=== PATIENT | female | born 1950 | race Caucasian/White ===

== ENCOUNTER 2020-12-17 09:39 | Day surgery (SDC) | payer MEDICARE ==
[~2020-12-17] VITALS: Ht 155 cm; Wt 63.0 kg
[~2020-12-17 09:39] MED LIST: ACETAMINOPHEN500 M1 PO; ALLERGY RELIEF10 M1 PO; ASPIRIN EC81 MG PO; ATORVASTATIN CA20 MG PO; FLUOXETINE HCL40 MG PO; LISINOPRIL20 MG PO; METOPROLOL SUCC50 MG PO; PERCOCET 5-3251 EACH PO; PROVENTIL HFA6.7 GM INH; VITAMIN D310 MC3 PO
[2020-12-18 05:52] LABS: BASOPHIL 0.1 % (0-2); EOSINOPHIL 0 % (0-7); HCT 25.3 % (37.0-47.0); HGB 8.5 g/dl (12.5-16.0); LYMPHOCYTE 6.9 % (15-48); MCH 32.3 pg (25.0-31.0); MCHC 33.6 g/dL (32.0-36.0); MCV 96.2 fL (78.0-100.0); MONOCYTE 5.9 % (0-12); MPV 9.3 fL (6.0-9.5); NEUTROPHIL 86.7 % (41-80); NRBC 0; PLT 215 K/uL (150-400); RBC 2.63 M/uL (4.20-5.40); RDW 11.9 % (11.5-14.0); WBC 15.5 K/uL (4.0-10.5)
[2020-12-18 06:30] LABS: BUN/CREAT RATIO (CALC) 20.8 RATIO; CREATININE 0.77 mg/dL (0.51-0.95); POTASSIUM 4.3 mmol/L (3.5-5.1)
[2020-12-18] MEDS ORDERED: ZOFRAN4 M1 PO (11:20)
[2020-12-18] MEDS ORDERED: FEOSOL325 MG PO (11:20)
[2020-12-18] MEDS ORDERED: ASPIRIN81 MG PO (11:20)
[2020-12-18 14:45] LABS: BUN/CREAT RATIO (CALC) 18.2 RATIO; CREATININE 0.99 mg/dL (0.51-0.95); POTASSIUM 4.2 mmol/L (3.5-5.1)
[2020-12-19 06:20] LABS: BASOPHIL 0.3 % (0-2); EOSINOPHIL 0.3 % (0-7); HCT 22.5 % (37.0-47.0); HGB 7.5 g/dl (12.5-16.0); LYMPHOCYTE 10.8 % (15-48); MCH 31.8 pg (25.0-31.0); MCHC 33.3 g/dL (32.0-36.0); MCV 95.3 fL (78.0-100.0); MONOCYTE 6.1 % (0-12); MPV 9.1 fL (6.0-9.5); NEUTROPHIL 82.1 % (41-80); NRBC 0; PLT 162 K/uL (150-400); RBC 2.36 M/uL (4.20-5.40); RDW 12.1 % (11.5-14.0); WBC 9.3 K/uL (4.0-10.5)
[2020-12-19 06:43] LABS: BUN/CREAT RATIO (CALC) 23.5 RATIO; CREATININE 0.85 mg/dL (0.51-0.95); POTASSIUM 4.3 mmol/L (3.5-5.1)
[2020-12-19] MEDS ORDERED: FEOSOL325 MG PO (13:19)
== END 2020-12-19 15:00 | disposition home health service (06) ==
LOC: FMS 09:39 → FAS 09:39 → FMS 13:32 → FAS 12-19 15:00
PROVIDERS: Nurse Practitioner Adult Health; Orthopaedic Surgery
DX: M17.11 Unilateral primary osteoarthritis, right knee (principal); Z20.822 Contact with and (suspected) exposure to COVID-19; R06.89 Other abnormalities of breathing; R11.2 Nausea with vomiting, unspecified
CPT/HCPCS: 36415; 36430; 73560; 80048; 85025; 86850; 86900; 86901; 86922; 94010; 94762; 97110; 97162; 97166; 97530-GP; 97535; C1713; C1776; J0171; J0697; J1100; J1885; J2250; J2270; J2405; J2795; J3010; J7120; P9016; Q0162